=== PATIENT | male | born 1965 | race Caucasian/White ===

== ENCOUNTER 2021-11-25 00:13 | Emergency (ER) | payer OTHER, SELFPAY ==
[2021-11-25 00:15] VITALS: BP 121/84; PULSE 79; RESP 16; TEMP 36.8; O2SAT 99; BMI 38.0
--- NOTE | 2021-11-25 00:33 | EX.ED.UPPERE ---
HPI History of Present Illness Chief Complaint: Upper Extremity Injury Narrative Narrative: Patient presents with right trapezial pain from an injury that he sustained at work today, approximately an hour ago. 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 He is right-hand dominant. Pain is worse with movement of his arm. He denies other injury. [facility] Medical History Hypertension Allergy/AdvReac Type Severity Reaction Status Date / Time Penicillins Allergy Anaphylaxis Verified 11/25/21 00:21 Social History Smoking Status: Former smoker ROS ROS ED ROS Narrative Constitutional: No fever, no chills. HEENT: No sore throat. No neck pain. No loss of vision. No rhinorrhea. Cardiovascular: No chest pain. No palpitations. No pedal edema. Respiratory: No cough, no shortness of breath. Abdominal: No abdominal pain. No nausea. No vomiting. Genitourinary: No dysuria. No hematuria. Musculoskeletal: Right trapezial pain no arthralgias. Neurologic: No headaches. No dizziness. No lightheadedness. Skin: No rash. No change in color. Psychiatric: No depression. No anxiety. EXAM Physical Exam Narrative Exam Narrative: Afebrile. Vital signs noted. HEENT: Normocephalic. Atraumatic. PERRL, EOMI. Neck soft and supple. No point tenderness or step off. Cardiovascular: Regular rate and rhythm. No murmurs, rubs, or gallops appreciated. Respiratory: No tachypnea. Lungs clear to auscultation bilaterally. Gastrointestinal: Abdomen soft, nontender, with normoactive bowel sounds. No rebound or guarding. Neurological: Awake. Alert. Nonfocal, nonlateralizing. Skin: No rash. Normal color. No pallor. Musculoskeletal: No pedal edema. Full range of motion extremities. Mild tenderness to palpation right trapezius. No evidence of dislocation of right shoulder. Neurovascular intact distally with palpable radial pulse. Muscle strength 5 out of 5 in hand. No crepitance. Const Vital Signs: 11/25/21 00:15 Temperature 98.3 F Temperature Source Oral Pulse Rate 79 Respiratory Rate 16 Blood Pressure 121/84 H Blood Pressure Mean 96 Pulse Ox 99 Oxygen Delivery Method Room Air MDM MDM MDM Narrative Medical decision making narrative: I do not feel that x-rays are indicated. He has pain mainly on the muscle of the right trapezius. He was given proximally here in the emergency department along with an ice pack. [facility] was [facility] to [facility]. He will be given the next 24 hours off of work, the day of his injury. He will take [id number] analgesics as needed. He was written back to work with limitations such as limited use of his right arm and no reaching above shoulder level and no lifting or carrying with no repetitive motion of the involved area. At this point in time, he will be discharged to follow-up with [facility]the [facility]. Disposition is discharged home in stable condition. Discharge Plan Triage Chief Complaint: Upper Extremity Injury ED Provider: Owen Rodas Dx/Rx/DC Orders Clinical Impression: Right shoulder strain, Strain of right trapezius muscle Instructions: Treating?Strains and Sprains, ED Muscle Strain, Extremity Primary Care Provider: Laura Durán NP Referrals: [facility] [NON-STAFF] - 1 Day Laura Durán AGRICULTURAL TECHNICAL OFFICER, AGRICULTURAL TECHNICAL OFFICER-C [Primary Care Provider] - Disposition Disposition: Home, Self Care Discharge Date/Time: 11/25/21 00:56
[2021-11-25 00:55] VITALS: BP 121/84; PULSE 79; RESP 18; O2SAT 99
== END 2021-11-25 00:56 | disposition home or self-care (01) ==
LOC: ED 00:41
PROVIDERS: Emergency Provider Emergency Medicine; PCP Nurse Practitioner Family; Visit Provider Emergency Medicine
DX: S46.911A Strain of unspecified muscle, fascia and tendon at shoulder and upper arm level, right arm, initial encounter (principal); S29.012A Strain of muscle and tendon of back wall of thorax, initial encounter; X50.0XXA Overexertion from strenuous movement or load, initial encounter; Y99.0 Civilian activity done for income or pay; I10 Essential (primary) hypertension; Z87.891 Personal history of nicotine dependence
CPT/HCPCS: 99283

== ENCOUNTER 2024-11-09 09:44 | Outpatient (RCR) | payer OTHER, SELFPAY ==
--- NOTE | 2024-11-09 11:15 | HP.PTEVAL_ITS ---
Patient's Visit Information Visit Information Visit Information: ROSI SHANNON is a 59 year old M referred to Physical Therapy by RENZO Patiño with a diagnosis of LBP with radiculopathy L. Date of Evaluation: 11/09/24 Physical Therapist: George Hodge, DPT, OCS, CSCS Visit Plan Frequency: 2x /Week Duration: 4-6 Weeks Plan: 2x/week for 3-6 weeks for... 1. quad and psoas stretch to HEP, may rollout. LB ROM progression to HEP flexion bias. 2. NS core strength mat to stand and progress HEP 3. general ex to HEP May use tENS and Mh if painful at rest IE HEP: pelvic tilt Post 10x, trunk rotation 10x, seated flexion 10x all 2x/day an d NS posture in stand and sit to be a focus. activitiy modification. Subjective Subjective: Having a pinch in Lower b ack on L side and L leg may go numb. Happening for 3-4 months and not sure why it started. Has h/o pinched sciatic nerve. x rays showed: DDD. Walking is the main problem and 300 feet is about limit then has to stop and bend. Sitting also causes leg to go numb. sitting on toilet and leg may go numb. Numbness gone with standing unless he stands too long. No other treatments, insurance wants to start with PT. Sleep is interrupted infrequently and if twists funny. 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 Basic ADLs are OK but modified time, girlfiriend ties shoes and has for 3-4 months. Hobbies include fishing and could do that. Pain L LBP: Pain Intensity (Out of 10): 1 Pain Intensity Range: 0 and 7 Comment: walking is worse Objective Objective: Walks slightly hobbling at first into PT I. Trasnfers slow chair and table and weakness evident in core , hard to stand up tall but I. Posture is increased lordosis in lumbar and kyphotic T/S, tends to hunch. Lumbar AROM ext max limited and painful L LB, avoids closing L side. L SB limited and pianful, R SB limited, flexion hurts at end range L LB and is min limited. HS max tight at -40 90/90 test. - slump and - SLR today. Quads into psoas max tight B and pulling pelvis forward in supine and prone. reflexes 23 patella adn achilles B sensation LE WNL to gross light touch at this point. strength in core is 3/5 abs and extensors, hip rotations 3+, flexion 3+, abduction 3+, ext 3 in avialable range. No myotomal abnormalities. Balance/Special Test Scores Oswestry Low Back Score: 30 Goals Goal 1:: I appropriate HEP of psoas sstretch, core NS strength, LB ROM and general ex to limit future problems Goal Time Frame: 4-6 Weeks Goal 2:: Pt feel pain 2/10 at worst and 75% improved Goal Time Frame: 4-6 Weeks Goal 3:: Walk 500 feet without increased symptoms Goal Time Frame: 4-6 Weeks Goal 4:: Oswestry score 7 or less. Goal Time Frame: 4-6 Weeks Rehabilitation Potential Physical Therapy Diagnosis: Limited ROm, tightness andweakness effecting comfortable function Rehabilitation Potential: Fair Anticipated Interventions Patient/Client Instruction: Educate patient on: Condition and Plan of Care For the Purpose of:: To decrease pain, To increase ROM, To improve nutrient delivery to tissue, To improve muscle performance and motor function, To increase tolerance to activity/condition/position, To improve ability of physical actions for home/community/work/leisure and To improve gait and locomotor functions Therapeutic Exercise to Include: Strength training, Postural training, Flexibilty training, Passive ROM, Active ROM and Dynamic Lumbar Stabilization For the Purpose of:: To decrease pain, To increase ROM, To improve nutrient delivery to tissue and To improve muscle performance and motor function Manual Therapy Techniques to Include: Mobilization and Passive ROM For the Purpose of:: To increase ROM and To improve nutrient delivery to tissue TENS: Yes Thermo therapy (hot pack): Yes For the Purpose of:: To decrease pain and To decrease swelling/inflammation Text: Thank you for the opportunity to evaluate your patient. For Medicare and Medicare HMO plans, please review the plan of care and approve it. It will need to be FAXED BACK to us at [phone] for Medicare purposes. For Medicare only, by signing this I certify the plan of care. Please let me know if there are questions or concerns regarding this plan of care. Physician Signature: Date:
--- NOTE | 2025-01-11 15:53 | HP.PTDCNRP_ITS ---
Patient Information Patient Information: ROSI SHANNON was seen in my office for initial evaluation on 11/09/24. The following Plan of Care was established for this patient: POC Established Initial Frequency: 2x /Week Initial Duration: 4-6 Weeks Anticipated Interventions Patient/Client Instruction: Educate patient on: Condition and Plan of Care For the Purpose of:: To decrease pain, To increase ROM, To improve nutrient delivery to tissue, To improve muscle performance and motor function, To increase tolerance to activity/condition/position, To improve ability of physi tonia actions for home/community/work/leisure and To improve gait and locomotor functions Therapeutic Exercise to Include: Strength training, Postural training, Flexibilty training, Passive ROM, Active ROM and Dynamic Lumbar Stabilization For the Purpose of:: To decrease pain, To increase ROM, To improve nutrient delivery to tissue and To improve muscle performance and motor function Manual Therapy Techniques to Include: Mobilization and Passive ROM For the Purpose of:: To increase ROM and To improve nutrient delivery to tissue TENS: Yes Thermo therapy (hot pack): Yes For the Purpose of:: To decrease pain and To decrease swelling/inflammation Last Seen Last Seen: This patient was last seen in our office 11/09/24. Pertinent comments regarding their Physical therapy will appear below: Pt seen for IE and POC established. Pt did not schedule or attend any further visits and it has been over two months. I will discontinue at this time At this point I will be discontinuing this patient from physical therapy. I would be happy to see this patient again in the future if found appropriate by the physician. Thank you! George Hodge, DPT, OCS, CSCS Balance/Gait/Functional tests Balance/Special Test Scores Oswestry Low Back Score: 30
== END 2024-11-09 19:00 | disposition home or self-care (01) ==
LOC: PT 09:44
PROVIDERS: PCP Nurse Practitioner Family; Visit Provider Nurse Practitioner Family
DX: R73.01 Impaired fasting glucose (principal); Z91.199 Patient's noncompliance with other medical treatment and regimen due to unspecified reason; Z72.0 Tobacco use; Z71.82 Exercise counseling; Z68.41 Body mass index [BMI] 40.0-44.9, adult; Z28.21 Immunization not carried out because of patient refusal; Z13.31 Encounter for screening for depression; M54.42 Lumbago with sciatica, left side; M48.061 Spinal stenosis, lumbar region without neurogenic claudication; M10.9 Gout, unspecified; M51.361 Other intervertebral disc degeneration, lumbar region with lower extremity pain only
CPT/HCPCS: 97110; 97162